=== PATIENT | female | born 1980 | race Caucasian/White ===

== ENCOUNTER 2017-01-24 22:38 | Emergency (ER) | payer OTHER ==
[~2017-01-24] VITALS: Ht 160 cm; Wt 86.2 kg
[~2017-01-24 22:38] MED LIST: ALA-CORT1% TP; BENADRYL ALLERG25 M5 PO; CIPRO250 MG PO; CLARITIN10 MG PO; MOTRIN800 MG PO; NKHM; PERCOCET 325 MG1 TA6 PO; TAXOL IV; TOBRADEX 0.1%-0.5 ML OPH; TRAMADOL HCL50 MG PO; VICODIN 5/500 505 MG PO; ZITHROMAX Z PA250 MG PO; ZOFRAN ODT4 MG SL; [UNRECOGNIZED DRUG - OTHER] T
[2017-01-24 22:43] VITALS: BP 151/103
[2017-01-24] MEDS ORDERED: TAMOXIFEN CITRA20 MG PO (22:44)
[2017-01-24] MEDS ORDERED: EFFEXOR XR37.5 M1 PO (22:44)
[2017-01-24] MEDS ORDERED: LORAZEPAM0.5 MG PO (22:44)
[2017-01-24 23:19] LABS: BASO % 0.1 % (0.0-1.0); EOS # 0.1 10*3/uL (0.0-0.4); HEMOGLOBIN 11.4 g/dl (12.0-16.0); LYMPH # 1.6 10*3/uL (1.3-4.4); LYMPH % 15.2 % (27.0-41.0); MEAN CORPUSCULAR HGB 27.5 pg (27.0-31.0); MEAN CORPUSCULAR HGB CONC 31.7 g/dl (33.0-37.0); MEAN PLATELET VOLUME 9.2 fl (9.6-12.3); MONO # 0.5 10*3/uL (0.1-1.0); MONO % 5.1 % (3.0-9.0); NEUT % 78.4 % (47.0-73.0); PLATELET COUNT AUTOMATED 217 10*3/uL (130-400); RED BLOOD COUNT 4.14 10*6/uL (4.10-5.10); RED CELL DISTRI WIDTH 13.5 % (0-14.5); WHITE BLOOD COUNT 10.2 10*3/uL (4.8-10.8)
[2017-01-24 23:32] LABS: ALBUMIN 3.1 gm/dl (3.1-4.5); ALKALINE PHOSPHATASE 86 U/L (45-117); BILIRUBIN, TOTAL 0.3 mg/dl (0.2-1.0); BUN 11 mg/dl (7-24); CARBON DIOXIDE 28 mmol/L (21-32); CHLORIDE 103 mmol/L (98-107); EST GLOM FILT AFRICAN AMERICAN > 60 ml/min; GLUCOSE 99 mg/dL (65-99); POTASSIUM 3.3 mmol/L (3.5-5.1); SGOT/AST 17 IU/L (3-35); SGPT/ALT 17 U/L (12-78); SODIUM 139 mmol/L (136-145)
[2017-01-25] MEDS ORDERED: CLEOCIN HCL300 MG PO (00:53)
== END 2017-01-25 01:04 | disposition home or self-care (01) ==
LOC: ED 22:38
PROVIDERS: Student in an Organized Health Care Education/Training Program
DX: L03.113 Cellulitis of right upper limb (principal); Z88.1 Allergy status to other antibiotic agents; Z88.6 Allergy status to analgesic agent; Z79.899 Other long term (current) drug therapy

== ENCOUNTER 2017-04-20 13:46 | Emergency (ER) | payer OTHER ==
[~2017-04-20] VITALS: Ht 160 cm; Wt 86.2 kg
[~2017-04-20 13:46] MED LIST changes: +CLEOCIN HCL300 MG PO; +EFFEXOR XR37.5 M1 PO; +LORAZEPAM0.5 MG PO; +TAMOXIFEN CITRA20 MG PO
[2017-04-20 13:49] VITALS: BP 175/95
[2017-04-20] MEDS ORDERED: CYCLOBENZAPRINE5 M3 PO (16:32)
[2017-04-20] MEDS ORDERED: MEDROL DOSEPAK4 MG PO (16:32)
== END 2017-04-20 16:45 | disposition home or self-care (01) ==
LOC: ED 13:46
DX: M50.31 Other cervical disc degeneration, high cervical region (principal); M54.5 Low back pain; Z79.899 Other long term (current) drug therapy; Z88.1 Allergy status to other antibiotic agents; Z88.5 Allergy status to narcotic agent; Z85.3 Personal history of malignant neoplasm of breast

== ENCOUNTER → 2017-11-04 | Outpatient (CLI) | payer OTHER ==
[~2017-11-04] MED LIST changes: +CYCLOBENZAPRINE5 M3 PO; +MEDROL DOSEPAK4 MG PO
== END | disposition home or self-care (01) ==
LOC: MAMMO 08:00
DX: R92.8 Other abnormal and inconclusive findings on diagnostic imaging of breast (principal); Z85.3 Personal history of malignant neoplasm of breast

== ENCOUNTER 2017-12-08 11:37 | Emergency (ER) | payer OTHER ==
[~2017-12-08] VITALS: Ht 160 cm; Wt 93.0 kg
[2017-12-08 12:09] LABS: BASO % 0.3 % (0.0-1.0); EOS # 0.2 10*3/uL (0.0-0.4); EOS % 2.2 % (1.0-4.0); HEMATOCRIT 38.8 % (37.0-47.0); HEMOGLOBIN 12.4 g/dl (12.0-16.0); LYMPH # 1.7 10*3/uL (1.3-4.4); MEAN CELL VOLUME 87.4 fl (81.0-99.0); MEAN CORPUSCULAR HGB 27.9 pg (27.0-31.0); MEAN PLATELET VOLUME 9.9 fl (9.6-12.3); MONO # 0.3 10*3/uL (0.1-1.0); MONO % 5.1 % (3.0-9.0); NEUT # 4.4 10*3/uL (2.3-7.9); NEUT % 66.3 % (47.0-73.0); PLATELET COUNT AUTOMATED 224 10*3/uL (130-400); RED BLOOD COUNT 4.44 10*6/uL (4.10-5.10); RED CELL DISTRI WIDTH 13.2 % (0-14.5); WHITE BLOOD COUNT 6.7 10*3/uL (4.8-10.8)
[2017-12-08 12:20] LABS: BUN 13 mg/dl (7-24); CHLORIDE 109 mmol/L (98-107); CREATININE 0.88 mg/dL (0.55-1.02); POTASSIUM 4.5 mmol/L (3.5-5.1); SODIUM 143 mmol/L (136-145)
[2017-12-08 13:18] VITALS: BP 120/67
== END 2017-12-08 14:48 | disposition home or self-care (01) ==
LOC: ED 11:37
PROVIDERS: Emergency Medicine
DX: T78.3XXA Angioneurotic edema, initial encounter (principal); Z88.1 Allergy status to other antibiotic agents; Z88.6 Allergy status to analgesic agent; Z79.899 Other long term (current) drug therapy

== ENCOUNTER 2018-06-29 19:04 | Emergency (ER) | payer OTHER ==
[~2018-06-29] VITALS: Ht 160 cm; Wt 97.5 kg
--- NOTE | ~2018-06-29 | EKG ---
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
--- NOTE | ~2018-06-29 | EKG ---
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
[2018-06-29] MEDS ORDERED: TAMOXIFEN CITRA20 MG PO (19:13)
[2018-06-29] MEDS ORDERED: EFFEXOR XR150 M1 PO (19:14)
[2018-06-29] MEDS ORDERED: PEPCID40 MG PO (19:14)
[2018-06-29] MEDS ORDERED: KLONOPIN1 M1 PO (19:15)
[2018-06-29] MEDS ORDERED: VISTARIL25 MG PO (19:15)
[2018-06-29] MEDS ORDERED: BUSPAR15 MG PO (19:15)
[2018-06-29] MEDS ORDERED: VITAMIN D50000 UNIT PO (19:16)
[2018-06-29] MEDS ORDERED: SEROQUEL100 MG PO (19:16)
[2018-06-29] MEDS ORDERED: HYDROCHLOROTH12.5 M3 PO (19:17)
[2018-06-29 19:31] LABS: BASO % 0.3 % (0.0-1.0); EOS # 0.2 10*3/uL (0.0-0.4); EOS % 1.8 % (1.0-4.0); HEMATOCRIT 39.1 % (37.0-47.0); HEMOGLOBIN 12.5 g/dl (12.0-16.0); LYMPH % 33.8 % (27.0-41.0); MEAN CELL VOLUME 86.5 fl (81.0-99.0); MEAN CORPUSCULAR HGB 27.7 pg (27.0-31.0); MEAN PLATELET VOLUME 9.3 fl (9.6-12.3); MONO # 0.6 10*3/uL (0.1-1.0); MONO % 6.3 % (3.0-9.0); NEUT # 5.1 10*3/uL (2.3-7.9); NEUT % 57.7 % (47.0-73.0); PLATELET COUNT AUTOMATED 260 10*3/uL (130-400); RED BLOOD COUNT 4.52 10*6/uL (4.10-5.10); RED CELL DISTRI WIDTH 13.2 % (0-14.5); WHITE BLOOD COUNT 8.8 10*3/uL (4.8-10.8)
[2018-06-29 19:42] LABS: ACT PARTIAL THROMBO TIME 21.8 SECONDS (20.8-31.5); INTERNATIONAL NORM RATIO 0.9 (2.0-3.5)
[2018-06-29 19:50] LABS: ALKALINE PHOSPHATASE 81 U/L (45-117); BUN 18 mg/dl (7-24); CHLORIDE 104 mmol/L (98-107); CREATININE 1.02 mg/dL (0.55-1.02); SGOT/AST 18 IU/L (3-35); SGPT/ALT 20 U/L (12-78); SODIUM 138 mmol/L (136-145); TOTAL PROTEIN 8.1 gm/dL (6.4-8.2)
[2018-06-29 19:54] LABS: TROPONIN I < 0.015 ng/ml (<0.045)
[2018-06-29 23:31] VITALS: BP 157/97
== END 2018-06-30 00:17 | disposition home or self-care (01) ==
LOC: ED 19:04
PROVIDERS: Physician Assistant
DX: R07.89 Other chest pain (principal); R07.81 Pleurodynia; R06.02 Shortness of breath; I10 Essential (primary) hypertension; Z88.6 Allergy status to analgesic agent; Z88.1 Allergy status to other antibiotic agents; Z88.8 Allergy status to other drugs, medicaments and biological substances; Z79.899 Other long term (current) drug therapy; Z90.12 Acquired absence of left breast and nipple

== ENCOUNTER → 2019-01-12 | Day surgery (SDC) | payer OTHER ==
[~2019-01-12] VITALS: Ht 157.4 cm; Wt 97.1 kg
[~2019-01-12] MED LIST changes: +AUGMENTIN 875-875 MG PO; +AUGMENTIN 875875 MG PO; +BUSPAR15 MG PO; +EFFEXOR XR150 M1 PO; +HYDROCHLOROTH12.5 M3 PO; +KLONOPIN1 M1 PO; +METOPROLOL TART50 M1 PO; +METOPROLOL TART75 MG PO; +NORCO 5-325 TA1 EACH PO; +NORCO 7.5-3251 EACH PO; +PEPCID40 MG PO; +PRINIVIL10 MG PO; +SEROQUEL100 MG PO; +VISTARIL25 MG PO; +VITAMIN D50000 UNIT PO
--- NOTE | ~2019-01-12 | O ---
[place], [place] OPERATIVE NOTE NAME: NE[facility]AJ ROBERTSON [facility] [id number] UNIT #: [id number] ROOM: DOCTOR: CECEL[facility] HERRERA,[facility] BIRTHDATE: [birth year] DOS: 01/12/2019 GASTROENDOSCOPIC REPORT HISTORY OF PRESENT ILLNESS: The patient is a 38-year-old patient who has presented with previous cholecystectomy and biliary leak and status post previous stent size 10 x 9 and into the common duct. The patient has been distressed with keeping the stent in since 10/25/2018 and anxious to had a J Sepulveda out that she has done so. PROCEDURE: Today's procedure part of investigation is ERCP plus common bile duct stent removal. PREMEDICATION: Propofol. SCOPE: Olympus side-viewing duodenoscope. REPORT: After putting the patient in left lateral position and application of lubricant to the scope, the scope was introduced. Thereafter, under direct visualization, advanced through the length of esophagus into gastric pouch into duodenum. A partially migrated common duct stent was snared and orally extracted. The patient was reintubated and papilla of Vater selectively approach. Guidewire was advanced directly to right hepatic radicles. Dye injected. There is some dye collection on the right side corresponding either with gallbladder fossa area or at residual cup remnant of the gallbladder proper sac. I infused dye under pressure that area definitely is outside of the anatomy of the liver. At the same time, I infused normal saline in proximal common hepatic duct to wash out the dye in the hepatic radicles and some of the dye in that extrahepatic area that I was concerned about washed out and so if this is a contiguous line of drainage, difficult to say if it is a leak in this area. The patient was anxious to have the stent out so at this stage I have pulled the stent out and the patient was extubated and tolerated the procedure well. IMPRESSION: ERCP suspected area of the dye collection into residual gallbladder at the anatomy of the cystic duct and gallbladder sac proper. PLAN AND DISCUSSION: We are going to observe this patient with CBC, LFTs on Thursday, 48 hours from now and then on Thursday both days, the patient is going to see Dr. Almeida in the office. I have discussed the case with Dr. Almeida as well today. If the patient develops fever or distress or right upper quadrant pain or any sequelae is of concern about biliary drainage, particularly in view of the fact that her J Derick is out, then we will replace size 10 x 9 common duct stent. If it does not, therefore that means an anatomy is continuous for drainage and no concern. Status post ERCP, status post common bile duct stent removal. Thank you very much indeed. [place], [place] OPERATIVE NOTE NAME: NEERAJ ROBERTSON UNIT #: [id number] ROOM: DOCTOR: ARSENIO RAI MD BIRTHDATE: [birth year] ARSENIO RAI MD CM:OPRECORD:OPERATIVE NOTE 1302 [id number] ARSENIO RAI MD 01/19/19 0934 interface
[2019-01-12 13:27] VITALS: BP 116/68
[2019-01-12 13:42] VITALS: BP 124/76
[2019-01-12 13:57] VITALS: BP 117/75
[2019-01-12 14:12] VITALS: BP 115/77
[2019-01-12 14:27] VITALS: BP 116/68
== END | disposition home or self-care (01) ==
LOC: SDC 01-05 12:30
DX: K91.89 Other postprocedural complications and disorders of digestive system (principal); I10 Essential (primary) hypertension; J45.909 Unspecified asthma, uncomplicated; K21.9 Gastro-esophageal reflux disease without esophagitis; F41.9 Anxiety disorder, unspecified; F32.9 Major depressive disorder, single episode, unspecified; Z85.3 Personal history of malignant neoplasm of breast; Z98.890 Other specified postprocedural states; Z88.8 Allergy status to other drugs, medicaments and biological substances; Z79.899 Other long term (current) drug therapy; Z90.49 Acquired absence of other specified parts of digestive tract; Z82.49 Family history of ischemic heart disease and other diseases of the circulatory system; Z80.3 Family history of malignant neoplasm of breast

== ENCOUNTER → 2019-01-14 | Outpatient (CLI) | payer OTHER ==
[2019-01-14 13:04] LABS: BASO % 0.3 % (0.0-1.0); EOS # 0.2 10*3/uL (0.0-0.4); EOS % 2.1 % (1.0-4.0); HEMATOCRIT 35.8 % (37.0-47.0); HEMOGLOBIN 10.8 g/dl (12.0-16.0); LYMPH # 3.2 10*3/uL (1.3-4.4); MEAN CORPUSCULAR HGB 26.5 pg (27.0-31.0); MEAN CORPUSCULAR HGB CONC 30.2 g/dl (33.0-37.0); MEAN PLATELET VOLUME 10.7 fl (9.6-12.3); MONO # 0.6 10*3/uL (0.1-1.0); MONO % 6.1 % (3.0-9.0); NEUT # 5.2 10*3/uL (2.3-7.9); NEUT % 56.3 % (47.0-73.0); PLATELET COUNT AUTOMATED 278 10*3/uL (130-400); RED BLOOD COUNT 4.07 10*6/uL (4.10-5.10); RED CELL DISTRI WIDTH 15.2 % (0-14.5); WHITE BLOOD COUNT 9.2 10*3/uL (4.8-10.8)
[2019-01-14 13:26] LABS: ALBUMIN 3.4 gm/dl (3.1-4.5); ALKALINE PHOSPHATASE 88 U/L (45-117); BILIRUBIN, DIRECT < 0.1 mg/dL (0.0-0.2); SGOT/AST 8 IU/L (3-35); SGPT/ALT 19 U/L (12-78); TOTAL PROTEIN 7.9 gm/dL (6.4-8.2)
== END | disposition home or self-care (01) ==
LOC: LAB 11:50
PROVIDERS: Internal Medicine Gastroenterology
DX: R94.5 Abnormal results of liver function studies (principal)

== ENCOUNTER → 2019-01-17 | Outpatient (CLI) | payer OTHER ==
[2019-01-17 10:48] LABS: BASO % 0.2 % (0.0-1.0); EOS # 0.2 10*3/uL (0.0-0.4); EOS % 2.3 % (1.0-4.0); HEMATOCRIT 36.1 % (37.0-47.0); HEMOGLOBIN 11.1 g/dl (12.0-16.0); LYMPH # 1.9 10*3/uL (1.3-4.4); LYMPH % 23.5 % (27.0-41.0); MEAN CELL VOLUME 86.8 fl (81.0-99.0); MEAN CORPUSCULAR HGB 26.7 pg (27.0-31.0); MEAN CORPUSCULAR HGB CONC 30.7 g/dl (33.0-37.0); MEAN PLATELET VOLUME 10.5 fl (9.6-12.3); MONO # 0.4 10*3/uL (0.1-1.0); MONO % 5.3 % (3.0-9.0); NEUT # 5.5 10*3/uL (2.3-7.9); NEUT % 68.2 % (47.0-73.0); PLATELET COUNT AUTOMATED 253 10*3/uL (130-400); RED BLOOD COUNT 4.16 10*6/uL (4.10-5.10); RED CELL DISTRI WIDTH 15.1 % (0-14.5); WHITE BLOOD COUNT 8.1 10*3/uL (4.8-10.8)
[2019-01-17 10:56] LABS: ALBUMIN 3.3 gm/dl (3.1-4.5); ALKALINE PHOSPHATASE 93 U/L (45-117); BILIRUBIN, DIRECT < 0.1 mg/dL (0.0-0.2); SGOT/AST 12 IU/L (3-35); SGPT/ALT 14 U/L (12-78); TOTAL PROTEIN 8.1 gm/dL (6.4-8.2)
== END | disposition home or self-care (01) ==
LOC: LAB 00:11
PROVIDERS: Internal Medicine Gastroenterology
DX: R94.5 Abnormal results of liver function studies (principal)

== ENCOUNTER → 2019-01-21 | Outpatient (CLI) | payer OTHER ==
[2019-01-21 12:26] LABS: BASO % 0.4 % (0.0-1.0); EOS # 0.2 10*3/uL (0.0-0.4); HEMATOCRIT 38.6 % (37.0-47.0); HEMOGLOBIN 11.6 g/dl (12.0-16.0); LYMPH # 2.8 10*3/uL (1.3-4.4); LYMPH % 27.1 % (27.0-41.0); MEAN CELL VOLUME 87.3 fl (81.0-99.0); MEAN CORPUSCULAR HGB 26.2 pg (27.0-31.0); MEAN CORPUSCULAR HGB CONC 30.1 g/dl (33.0-37.0); MEAN PLATELET VOLUME 10.7 fl (9.6-12.3); MONO # 0.7 10*3/uL (0.1-1.0); MONO % 6.3 % (3.0-9.0); NEUT # 6.6 10*3/uL (2.3-7.9); NEUT % 63.6 % (47.0-73.0); PLATELET COUNT AUTOMATED 305 10*3/uL (130-400); RED BLOOD COUNT 4.42 10*6/uL (4.10-5.10); RED CELL DISTRI WIDTH 14.9 % (0-14.5); WHITE BLOOD COUNT 10.4 10*3/uL (4.8-10.8)
[2019-01-21 12:50] LABS: ALBUMIN 3.5 gm/dl (3.1-4.5); ALKALINE PHOSPHATASE 100 U/L (45-117); BILIRUBIN, DIRECT < 0.1 mg/dL (0.0-0.2); SGOT/AST 7 IU/L (3-35); SGPT/ALT 15 U/L (12-78); TOTAL PROTEIN 8.5 gm/dL (6.4-8.2)
== END | disposition home or self-care (01) ==
LOC: LAB 00:43
PROVIDERS: Internal Medicine Gastroenterology
DX: R94.5 Abnormal results of liver function studies (principal)

== ENCOUNTER → 2020-03-02 | Outpatient (CLI) | payer OTHER | END | disposition home or self-care (01) | LOC: COVID19 02:46 | PROVIDERS: ATTEND Family Medicine | DX: Z20.828 Contact with and (suspected) exposure to other viral communicable diseases (principal) ==